=== PATIENT | female | born 1985 | race Caucasian/White ===

== ENCOUNTER 2022-07-22 19:22 | Inpatient (IN) | payer OTHER, SELFPAY ==
[2022-07-22] VITALS (13 sets, daily range): BP systolic 112–145; BP diastolic 70–92; PULSE 113–127; RESP 18–26; TEMP 36.9–37; O2SAT 97–98; BMI 36.6
--- NOTE | 2022-07-22 20:16 | DI.RAD.S_ITS ---
PROCEDURE: XR CHEST 1V INDICATIONS: chest pain TECHNIQUE: One view of the chest was acquired. COMPARISON: None. FINDINGS: Surgical changes and devices: None. Lungs and pleura: There are low lung volumes. Confluent airspace opacities are demonstrated within the left lung base consistent with consolidation. No pleural effusions or pneumothorax. Mediastinum: Mediastinal contours appear normal. Heart size is normal. Bones and chest wall: No suspicious bony lesions. Overlying soft tissues appear unremarkable. IMPRESSION: 1. Left basilar consolidation likely due to pneumonia. Dictated by: Keaton Sy M.D. on 07/22/2022 at 21:07 Approved by: Keaton Sy M.D. on 07/22/2022 at 21:08
[2022-07-22] MEDS: KETOROLAC 30 MG/ML VIAL 15 MG IV (20:23)
[2022-07-22] MEDS: SODIUM CHLORIDE 0.9% 1,000 ML 1000 ML IV ×2 (20:24→23:25)
[2022-07-22 20:26] LABS: D Dimer 818 ng/ml (<500)
--- NOTE | 2022-07-22 20:28 | ED.URI ---
HPI - URI/Sore Throat General Chief Complaint: Upper Respiratory Symptoms Stated Complaint: chest pain, cough, shortness of lucio, fev, chills Time Seen by Provider: 07/22/22 19:42 Source: patient Mode of arrival: Ambulatory History of Present Illness HPI Narrative: Patient is a 37-year-old female without past medical history presenting today with left-sided chest pain and upper respiratory like infections. She reports that she went to [facility] on July 11. For the last 5 days she has been coughing she is been taking Tylenol and ibuprofen around the clock. She is left-sided pain almost pinpoint able. Unable to lay down at night because of pain. She sometimes feels short of breath. She tried taking some cough syrup last night it helped a little bit. However the pain is pretty unbearable. She is not coughing anything up. No abdominal pain no swelling in her ankles. Denies any orthopnea. Related Data Home Medications Medication Instructions Recorded Confirmed No Known Home Medications 07/22/22 07/22/22 Allergies Allergy/AdvReac Type Severity Reaction Status Date / Time ciprofloxacin [From Cipro] Allergy Verified 07/22/22 19:36 Sulfa (Sulfonamide Allergy Verified 07/22/22 19:36 Antibiotics) Review of Systems Review of Systems ROS Unobtainable: All systems reviewed & are unremarkable except as noted in HPI and below Patient History Social History household members: spouse and children Smoking Status: Never smoker Smoking Status: Never smoker alcohol intake frequency: holidays/special occasions only Substance Use Type: does not use Exam Initial Vital Signs Initial Vital Signs: Vital Signs Temperature 98.6 F 07/22/22 19:31 Pulse Rate 125 H 07/22/22 19:31 Respiratory Rate 18 07/22/22 19:31 Blood Pressure 131/86 07/22/22 19:31 Pulse Oximetry 98 07/22/22 19:31 Oxygen Delivery Method 07/22/22 19:31 GENERAL: Alert 37-year-old female appears to not feel well HEENT: Head atraumatic,EOMI, pupils reactive, face symmetric, moist mucous membranes CARDIOVASCULAR: Tachy regular no murmurs RESPIRATORY: Breath sounds equal bilaterally, no wheezes rales or rhonchi. ABDOMEN: Soft, nontender. Normoactive bowel sounds all 4 quadrants. No guarding or rebound. : No CVA tenderness EXTREMITIES: Normal range of motion, no clubbing or edema. Neurovascularly intact NEUROLOGICAL: Alert and oriented x4.Normal gait and speech. SKIN: Warm, dry, no laceration, no petechiae, no rashes or lesions. Scores CURB-65 Confusion: No BUN >19mg/dL (>7mmol/L): No Respiratory rate greater or equal to 30: No SBP <90mmHg or DBP less or equal to 60mmHg: No Age 65 or Older: No CURB-65 Total: 0 Score 0-1 Outpatient care, Score 2 Inpt vs. Obs, Score 3 or over Inpt admit with ICU for score of 4-5 Course Orders Ordered: ED Orders 07/22/22 19:40 Covid-19 + FLU A/B + RSV - PCR Stat 07/22/22 20:00 Lactate (Lactic Acid) Stat 07/22/22 20:10 Complete Blood Count AUTO DIFF Stat Comprehensive Metabolic Panel Stat D Dimer Stat Lipase Stat NT-proBNP (BNP-Adult 18+) Stat Procalcitonin Stat Troponin & CK Cardiac Panel Stat 07/22/22 20:16 XR chest 1V Stat EKG-12 Lead Stat 07/22/22 20:43 CT angio chest PE protocol Stat 07/22/22 20:51 Ictotest Urine Stat Urine Microscopic Stat 07/22/22 21:05 Blood Culture Stat Acetaminophen (Acetaminophen 325 Mg Tablet) 650 mg PO Q6H PRN PRN Reason: Fever/Mild Pain (1-3) Enoxaparin Sodium (Enoxaparin 40 Mg/0.4 Ml Syringe) 40 mg SUBCUT DAILY [facility] Guaifenesin (Guaifenesin Er 600 Mg Tab) 1,200 mg PO BID [facility] Last Admin: 07/23/22 00:53 Dose: 1,200 mg Documented By: Guaifenesin/Codeine Phosphate (Codeine/Guaifenesin Liquid 5ml Udc) 10 ml PO Q6H PRN PRN Reason: Cough Ceftriaxone Sodium 1,000 mg/ (Sodium Chloride) 100 mls @ 200 mls/hr IV Q24H [facility] Azithromycin 500 mg/ Dextrose 250 mls @ 250 mls/hr IV Q24H [facility] Ketorolac Tromethamine (Ketorolac 30 Mg/Ml Vial) 15 mg IV Q6H PRN PRN Reason: pain Stop: 07/27/22 22:22 Morphine Sulfate (Morphine 2 Mg/Ml Inj) 2 mg IV Q4HR PRN PRN Reason: Pain, Moderate (4-6) Last Admin: 07/23/22 01:04 Dose: 2 mg Documented By: Naloxone HCl (Naloxone 0.4 Mg/Ml Vial) 0.2 mg IV Q2MIN PRN PRN Reason: Opiate Reversal Ondansetron HCl (Ondansetron 4 Mg/2 Ml Inj) 4 mg IV Q8HR PRN PRN Reason: Nausea And Vomiting Discontinued Medications Acetaminophen (Acetaminophen 325 Mg Tablet) 975 mg PO NOW ONE Stop: 07/22/22 21:23 Last Admin: 07/22/22 21:28 Dose: 975 mg Documented By: INDIRA Sodium Chloride (Normal Saline 0.9%) 1,000 mls @ 1,000 mls/hr IV CONT VANDANA Last Infusion: 07/22/22 22:14 Dose: 0 mls/hr Documented By: Admin: 07/22/22 20:24 Dose: 1,000 mls/hr Documented By: INDIRA Ceftriaxone Sodium 2,000 mg/ (Sodium Chloride) 100 mls @ 200 mls/hr IV NOW ONE Stop: 07/22/22 20:57 Last Infusion: 07/22/22 22:14 Dose: 0 mls/hr Documented By: Admin: 07/22/22 21:33 Dose: 200 mls/hr Documented By: INDIRA Azithromycin 500 mg/ Dextrose 250 mls @ 250 mls/hr IV NOW ONE Stop: 07/22/22 20:57 Last Infusion: 07/22/22 22:50 Dose: 250 mls/hr Documented By: Admin: 07/22/22 22:26 Dose: 250 mls/hr Documented By: INDIRA Sodium Chloride (Normal Saline 0.9%) 1,000 mls @ 1,000 mls/hr IV BOLUS ONE Stop: 07/23/22 00:06 Last Admin: 07/22/22 23:25 Dose: 1,000 mls/hr Documented By: Ketorolac Tromethamine (Ketorolac 30 Mg/Ml Vial) 15 mg IV NOW ONE Stop: 07/22/22 20:17 Last Admin: 07/22/22 20:23 Dose: 15 mg Documented By: INDIRA Morphine Sulfate (Morphine 4 Mg/Ml Inj) 4 mg IV NOW ONE Stop: 07/22/22 22:05 Last Admin: 07/22/22 22:26 Dose: 4 mg Documented By: INDIRA Vital Signs Vital signs: Vital Signs - 8 hr 07/22/22 19:31 07/22/22 19:58 07/22/22 19:58 Temperature 98.6 F Pulse Rate 125 H 127 H Respiratory Rate 18 Blood Pressure 131/86 129/74 Pulse Oximetry 98 97 Oxygen Delivery Method Room Air Room Air 07/22/22 20:00 07/22/22 20:30 07/22/22 20:30 Temperature Pulse Rate 127 H 122 H Respiratory Rate 23 24 Blood Pressure 113/92 H Pulse Oximetry 97 97 Oxygen Delivery Method Room Air Room Air 07/22/22 20:54 07/22/22 20:54 07/22/22 21:00 Temperature Pulse Rate 124 H 113 H Respiratory Rate 24 25 H Blood Pressure 145/83 H Pulse Oximetry 98 98 Oxygen Delivery Method Room Air Room Air 07/22/22 21:01 07/22/22 21:01 07/22/22 21:30 Temperature Pulse Rate 113 H 115 H Respiratory Rate 24 24 Blood Pressure 115/70 Pulse Oximetry 98 97 Oxygen Delivery Method Room Air Room Air MDM - URI/Sore Throat Lab Data 07/22/22 20:10 07/22/22 20:10 Labs: Lab Results 07/22/22 07/22/22 07/22/22 Range/Units 19:40 20:00 20:10 WBC 35.8 H* (4.5-11.0) X10^3/uL RBC 4.68 (4.0-5.2) X10^6/uL Hgb 12.1 (12.0-16.0) g/dL Hct 36.8 (36-46) % MCV 78.6 L (80-100) fL MCH 25.8 L (26-34) PG MCHC 32.8 (30-36) % RDW 15.2 H (11.6-14.8) % Plt Count 352 (150-400) X10^3/uL Neut % (Auto) Not Reportable Lymph % (Auto) Not Reportable [place] % (Auto) Not Reportable Eos % (Auto) Not Reportable Baso % (Auto) Not Reportable Lymph # (Auto) Not Reportable [place] # (Auto) Not Reportable Baso # (Auto) Not Reportable Total Counted 100 Seg Neutrophils % 58.0 (38-70) % Band Neutrophils % 25.0 H (3-7) % Lymphocytes % (Manual) 10.0 L (25-45) % Monocytes % (Manual) 7.0 (2-11) % Neutrophils # (Manual) 96771 H (4647-0733) /uL Platelet Estimate Adequate on smear RBC Morphology Normal morphology D-Dimer (<500) ng/ml Sodium (137-145) mmol/L Potassium (3.4-5.1) mmol/L Chloride (98-107) mmol/L Carbon Dioxide (22-32) mmol/L BUN (7-17) mg/dL Creatinine (0.52-1.04) mg/dL Estimated GFR (>60) mL/min BUN/Creatinine Ratio (6-22) Glucose (70-100) mg/dL Lactate 1.2 (0.7-2.1) mmol/L Calcium (8.4-10.2) mg/dL Total Bilirubin (0.2-1.3) mg/dL AST (14-36) IU/L ALT (<35) IU/L Alkaline Phosphatase (38-126) U/L Total Creatine Kinase (30-135) U/L CK-MB (CK-2) CK-MB (CK-2) Rel Index Troponin I (0.01-0.034) ng/mL NT-Pro-B Natriuret Pep (<125) pg/mL Total Protein (6.3-8.2) g/dL Albumin (3.5-5.0) g/dL Globulin (1.7-4.1) g/dL Albumin/Globulin Ratio (1.0-2.8) Lipase (23-300) U/L Procalcitonin (<0.5) ng/mL Ur Bilirubin Confirm (Negative) Urine RBC (0-5/HPF) Urine WBC (0-5/HPF) Urine Bacteria (None) Ur Culture Indicated? SARS-CoV-2 (PCR) Positive H (Negative) Influenza A (RT-PCR) Flu a negative (NEGATIVE) Influenza B (RT-PCR) Flu b negative (NEGATIVE) RSV (PCR) Negative (Negative) 07/22/22 07/22/2223 Range/Units 20:10 20:10 20:51 WBC (4.5-11.0) X10^3/uL RBC (4.0-5.2) X10^6/uL Hgb (12.0-16.0) g/dL Hct (36-46) % MCV (80-100) fL MCH (26-34) PG MCHC (30-36) % RDW (11.6-14.8) % Plt Count (150-400) X10^3/uL Neut % (Auto) Lymph % (Auto) [place] % (Auto) Eos % (Auto) Baso % (Auto) Lymph # (Auto) [place] # (Auto) Baso # (Auto) Total Counted Seg Neutrophils % (38-70) % Band Neutrophils % (3-7) % Lymphocytes % (Manual) (25-45) % Monocytes % (Manual) (2-11) % Neutrophils # (Manual) (5403-8710) /uL Platelet Estimate RBC Morphology D-Dimer 818 H (<500) ng/ml Sodium 141 (137-145) mmol/L Potassium 3.6 (3.4-5.1) mmol/L Chloride 102 (98-107) mmol/L Carbon Dioxide 23 (22-32) mmol/L BUN 10 (7-17) mg/dL Creatinine 0.56 (0.52-1.04) mg/dL Estimated GFR > 60 (>60) mL/min BUN/Creatinine Ratio 17.9 (6-22) Glucose 141 H (70-100) mg/dL Lactate (0.7-2.1) mmol/L Calcium 9.3 (8.4-10.2) mg/dL Total Bilirubin 1.0 (0.2-1.3) mg/dL AST 29 (14-36) IU/L ALT 65 H (<35) IU/L Alkaline Phosphatase 239 H (38-126) U/L Total Creatine Kinase 33 (30-135) U/L CK-MB (CK-2) TNP CK-MB (CK-2) Rel Index TNP Troponin I < 0.012 (0.01-0.034) ng/mL NT-Pro-B Natriuret Pep 237 H (<125) pg/mL Total Protein 8.5 H (6.3-8.2) g/dL Albumin 4.0 (3.5-5.0) g/dL Globulin 4.5 H (1.7-4.1) g/dL Albumin/Globulin Ratio 0.9 L (1.0-2.8) Lipase 58 (23-300) U/L Procalcitonin 1.04 H (<0.5) ng/mL Ur Bilirubin Confirm Negative (Negative) Urine RBC 1-5/hpf (0-5/HPF) Urine WBC None seen (0-5/HPF) Urine Bacteria Occasional (0-1) (None) Ur Culture Indicated? Cult not indicated SARS-CoV-2 (PCR) (Negative) Influenza A (RT-PCR) (NEGATIVE) Influenza B (RT-PCR) (NEGATIVE) RSV (PCR) (Negative) Point of Care Testing Test Results Negative Urine Dip Bedside Urine Glucose Negative Bedside Urine Bilirubin - Negative Bedside Urine Ketone - Negative Urine Specific [place] 1.010 Bedside Urine Occult Blood +++ Bedside Urine pH 6.0 Bedside Urine Protein + 30 Bedside Urine Urobilinogen +/- 1mg Bedside Urine Nitrite - Negative Bedside Urine Leukocytes - Negative Esterase Imaging Data Chest x-ray: Radiologist's Impression: PROCEDURE:? XR CHEST 1V ? INDICATIONS:? chest pain ? TECHNIQUE:? One view of the chest was acquired.? ? COMPARISON:? None. ? FINDINGS:? ? Surgical changes and devices:? None.? ? Lungs and pleura:? There are low lung volumes.? Confluent airspace opacities are demonstrated within the left lung base consistent with consolidation.? No pleural effusions or pneumothorax.? ? Mediastinum:? Mediastinal contours appear normal.? Heart size is normal.? ? Bones and chest wall:? No suspicious bony lesions.? Overlying soft tissues appear unremarkable.? ? IMPRESSION:? ? 1. Left basilar consolidation likely due to pneumonia. ? ? Dictated by: Keaton Sy M.D. on 07/22/2022 at 21:07 ? ? CT scan - chest: Radiologist's Impression: PROCEDURE:? CT ANGIO CHEST PE PROTOCOL ? INDICATIONS:? sob high dime ? TECHNIQUE:? After the administration of intravenous contrast, 2 mm thick sections acquired from the pulmonary apices to the posterior costophrenic angles.? 3-dimensional maximum intensity projection (MIP) coronal and sagittal reformats were then acquired through the thorax.? For radiation dose reduction, the following was used:? automated exposure control, adjustment of mA and/or kV according to patient size.? ? COMPARISON:? [facility], CR, XR CHEST 1V, 07/22/2022, 20:25. ? FINDINGS:? Image quality:? Excellent.? ? Pulmonary arteries:? There is suboptimal opacification of the pulmonary arteries limiting evaluation of subsegmental branches.? Pulmonary arteries demonstrate no intraluminal filling defects to suggest central pulmonary embolism.? ? Lower Neck: No lymphadenopathy by size criteria. Thyroid:? Visualized thyroid demonstrates no discrete nodules. Axillae: No lymphadenopathy by size criteria. Chest Wall:? Unremarkable.? Bones: Visualized osseous structures demonstrate no suspicious lesions. ? Lungs and Airways:? There is confluent airspace consolidation within the left lingula.? Mild linear opacities within the lower lobes, left greater than right, are suggestive of atelectasis.? The trachea and central airways are patent. Pleura: No pneumothorax or pleural effusions.? ? Heart: Heart size is normal.? No pericardial effusion. Thoracic Vessels: The thoracic aorta is normal in size.? Mediastinum and Orin: No lymphadenopathy by size criteria. Esophagus: No wall thickening. No hiatal hernia. ? Abdomen:? Visualized upper abdominal solid organs appear normal in the early arterial phase of enhancement.? ? IMPRESSION:? ? 1. No evidence of central pulmonary embolism.? Evaluation of subsegmental pulmonary arteries limited by suboptimal contrast opacification. ? 2. Confluent consolidation within the left lingula compatible with lobar pneumonia. ? ? Dictated by: Keaton Sy M.D. on 07/22/2022 at 22:06 ? ? Approved by: Keaton Sy M.D. on 07/22/2022 at 22:09 ? ECG Data Interpretation: Sinus rhythm rate 120 IA interval 126 QRS [address] changes MDM Narrative Medical decision making narrative: Patient is a healthy 37-year-old female presenting with upper respiratory like symptoms ongoing for 5 days. She has significant left-sided chest pain as well. Pain seems to be palpable and reproducible with breathing. She is persistently tachycardic despite pain medication and IV fluids. Her x-ray does show left-sided pneumonia. She is not hypoxic. She is found have significant leukocytosis of 35,000. Her D-dimer is elevated at 818. Due to her recent travel persistent tachycardia and significant leukocytosis CT chest is ordered which does confirm pneumonia and does not show any pulmonary embolism. She is also found to have COVID. She appears quite uncomfortable on exam. She is given morphine and fluids but again is persistently tachycardic with a heart rate greater than 110. Her lactate is surprisingly within normal limits and her electrolytes and kidney function also do not show any abnormality. She is given Rocephin and azithromycin for community-acquired pneumonia. She is not hypoxic requiring treatment for her COVID. Due to significantly elevated leukocytosis and persistent tachycardia discussion with hospitalist to admit. Dr. Mccormick kindly accepts patient for admission Discharge Plan Departure Patient Disposition: Admitted As Inpatient Clinical Impression: Pneumonia, COVID-19 Admit Date/Time: 07/22/22 21:55 Admit Provider: Yovani Arnold
[2022-07-22 20:30] LABS: Alanine Aminotransferase 65 IU/L (<35); Albumin Globulin Ratio 0.9 (1.0-2.8); Alkaline Phosphatase 239 U/L (38-126); Aspartate Aminotransferase 29 IU/L (14-36); BUN Creatinine Ratio 17.9 (6-22); Blood Urea Nitrogen 10 mg/dL (7-17); Calcium 9.3 mg/dL (8.4-10.2); Carbon Dioxide 23 mmol/L (22-32); Chloride 102 mmol/L (98-107); Creatine Kinase 33 U/L (30-135); Estimated Glomerular Filt Rate > 60 mL/min (>60); Globulin 4.5 g/dL (1.7-4.1); Glucose 141 mg/dL (70-100); HEMOLYSIS < 15 (0-50); Lipase 58 U/L (23-300); Potassium 3.6 mmol/L (3.4-5.1); Sodium 141 mmol/L (137-145); Total Protein 8.5 g/dL (6.3-8.2)
[2022-07-22 20:36] LABS: Hematocrit 36.8 % (36-46); Hemoglobin 12.1 g/dL (12.0-16.0); Mean Corpuscular HGB Conc 32.8 % (30-36); Mean Corpuscular Hemoglobin 25.8 PG (26-34); Mean Corpuscular Volume 78.6 fL (80-100); Platelet Count 352 X10^3/uL (150-400); Red Blood Cell Count 4.68 X10^6/uL (4.0-5.2); Red Cell Distribution Width 15.2 % (11.6-14.8)
[2022-07-22 20:41] LABS: Influenza A - CEPHEID Flu A NEGATIVE (NEGATIVE); Influenza B - CEPHEID Flu B NEGATIVE (NEGATIVE); Respiratory Syncytial Virus Negative (Negative)
[2022-07-22 20:42] LABS: NT-proBNP (BNP-Adult 18+) 237 pg/mL (<125); Troponin I < 0.012 ng/mL (0.01-0.034)
--- NOTE | 2022-07-22 20:43 | DI.CT.S_ITS ---
PROCEDURE: CT ANGIO CHEST PE PROTOCOL INDICATIONS: sob high dime TECHNIQUE: After the administration of intravenous contrast, 2 mm thick sections acquired from the pulmonary apices to the posterior costophrenic angles. 3-dimensional maximum intensity projection (MIP) coronal and sagittal reformats were then acquired through the thorax. For radiation dose reduction, the following was used: automated exposure control, adjustment of mA and/or kV according to patient size. COMPARISON: [facility], CR, XR CHEST 1V, 07/22/2022, 20:25. FINDINGS: Image quality: Excellent. Pulmonary arteries: There is suboptimal opacification of the pulmonary arteries limiting evaluation of subsegmental branches. Pulmonary arteries demonstrate no intraluminal filling defects to suggest central pulmonary embolism. Lower Neck: No lymphadenopathy by size criteria. Thyroid: Visualized thyroid demonstrates no discrete nodules. Axillae: No lymphadenopathy by size criteria. Chest Wall: Unremarkable. Bones: Visualized osseous structures demonstrate no suspicious lesions. Lungs and Airways: There is confluent airspace consolidation within the left lingula. Mild linear opacities within the lower lobes, left greater than right, are suggestive of atelectasis. The trachea and central airways are patent. Pleura: No pneumothorax or pleural effusions. Heart: Heart size is normal. No pericardial effusion. Thoracic Vessels: The thoracic aorta is normal in size. Mediastinum and Orin: No lymphadenopathy by size criteria. Esophagus: No wall thickening. No hiatal hernia. Abdomen: Visualized upper abdominal solid organs appear normal in the early arterial phase of enhancement. IMPRESSION: 1. No evidence of central pulmonary embolism. Evaluation of subsegmental pulmonary arteries limited by suboptimal contrast opacification. 2. Confluent consolidation within the left lingula compatible with lobar pneumonia. Dictated by: Keaton Sy M.D. on 07/22/2022 at 22:06 Approved by: Keaton Sy M.D. on 07/22/2022 at 22:09
[2022-07-22 20:44] LABS: Add Manual Diff / Slide Review YES
[2022-07-22 20:45] LABS: White Blood Cell Count 35.8 X10^3/uL (4.5-11.0)
[2022-07-22 20:46] LABS: Procalcitonin 1.04 ng/mL (<0.5)
[2022-07-22 20:59] LABS: Neutrophils Absolute Manual 29714 /uL (3000-5900); Total Cells Counted 100
[2022-07-22 21:00] LABS: Platelet Estimate Adequate on smear; RBC Morphology Normal Morphology
[2022-07-22 21:11] LABS: Lactate (Lactic Acid) 1.2 mmol/L (0.7-2.1)
[2022-07-22 21:16] LABS: COVID-19 CEPHEID 4-PLEX PCR POSITIVE (Negative)
[2022-07-22 21:23] LABS: Bacteria Urine Occasional (0-1); RBC Urine 1-5/HPF (0-5/HPF); WBC Urine None Seen (0-5/HPF)
[2022-07-22 21:24] LABS: Culture Indicated Urine Cult Not Indicated
[2022-07-22 21:27] LABS: Ictotest Urine Negative (Negative)
[2022-07-22] MEDS: ACETAMINOPHEN 325 MG TABLET 975 MG PO (21:28)
[2022-07-22] MEDS: cefTRIAXone 2,000 MG in SODIUM CHLORIDE 0.9% 100 ML 200 MG IV (21:33)
[2022-07-22] MEDS: AZITHROMYCIN 500 MG in DEXTROSE 5% IN WATER 250 ML 250 MG IV (22:26)
[2022-07-22] MEDS: MORPHINE 4 MG/ML INJ IV (22:26)
--- NOTE | 2022-07-22 23:21 | PM.HP.1 ---
History of Present Illness History of Present Illness Date Patient Seen: 07/22/22 Time Patient Seen: 23:30 Chief complaint: chest pain, cough, shortness of lucio, fev, chills Narrative: Ms. Naranjo is a 37W with no significant cardiac or pulmonary medical history who presents with shortness of breath and cough. She was recently in [place] and returned a week and a half ago. She has noted since she has developed a worsening cough and shortness of breath. She notes developing left sided chest pain that hurts worth with breaths. She has no sick contacts. No smoking or vaping history. No aspiration. She had been taking tylenol and ibuprofen consistently for pain. She has noted fevers. Her cough is nonproductive. In the ED workup was done, vitals notable for being afebrile, heart rate in the 120s, sats 98% on room air. Labs notable for WBC 35.8, hgb 12.1, 25% bands. Lactate 1.2. COVID positive. d-dimer 818. Creatinine 0.56. Procal 1.04. Chest xray with left basilar consolidation. CTA chest with left lingular consolidation. She was ordered for antibiotics and admitted for further treatment. Patient History Family & Social History Tobacco & Substance use: Smoking Status Never smoker alcohol intake frequency holiday/special occasion Substance Use Type does not use Meds Home Medications and Allergies Home Medications Medication Instructions Recorded Confirmed Type No Known Home Medications 07/22/22 07/22/22 History Allergies Allergy/AdvReac Type Severity Reaction Status Date / Time ciprofloxacin [From Cipro] Allergy Verified 07/22/22 19:36 Sulfa (Sulfonamide Allergy Verified 07/22/22 19:36 Antibiotics) Review of Systems Review of Systems Narrative: 14 systems reviewed and negative aside from what is noted in HPI Exam Vital Signs (past 8 hours): - 07/22/22 19:31 07/22/22 19:58 07/22/22 19:58 Temperature 98.6 F Pulse Rate 125 H 127 H Respiratory Rate 18 Blood Pressure 131/86 129/74 Pulse Oximetry 98 97 Oxygen Delivery Method Room Air Room Air 07/22/22 20:00 07/22/22 20:30 07/22/22 20:30 Temperature Pulse Rate 127 H 122 H Respiratory Rate 23 24 Blood Pressure 113/92 H Pulse Oximetry 97 97 Oxygen Delivery Method Room Air Room Air 07/22/22 20:54 07/22/22 20:54 07/22/22 21:00 Temperature Pulse Rate 124 H 113 H Respiratory Rate 24 25 H Blood Pressure 145/83 H Pulse Oximetry 98 98 Oxygen Delivery Method Room Air Room Air 07/22/22 21:01 07/22/22 21:01 Temperature Pulse Rate 113 H Respiratory Rate 24 Blood Pressure 115/70 Pulse Oximetry 98 Oxygen Delivery Method Room Air Oxygen Delivery Method Room Air Narrative Exam Narrative: GEN: ill appearing, uncomfortable appearing HEENT: moist mucous membranes, PERRL NECK: trachea midline, no jvd PULM: left sided base decreased breath sounds CV: tachycardic no murmurs ABD: soft, nontender EXT: warm and well perfused, no edema NEURO: awake, alert, oriented, no focal deficits noted Objective Labs 07/22/22 20:10 07/22/22 20:10 Labs: Laboratory Results - last 24 hr 07/22/22 07/22/22 07/22/22 19:40 20:00 20:10 WBC 35.8 H* RBC 4.68 Hgb 12.1 Hct 36.8 MCV 78.6 L MCH 25.8 L MCHC 32.8 RDW 15.2 H Plt Count 352 Neut % (Auto) Not Reportable Lymph % (Auto) Not Reportable [place] % (Auto) Not Reportable Eos % (Auto) Not Reportable Baso % (Auto) Not Reportable Lymph # (Auto) Not Reportable [place] # (Auto) Not Reportable Baso # (Auto) Not Reportable Total Counted 100 Seg Neutrophils % 58.0 Band Neutrophils % 25.0 H Lymphocytes % (Manual) 10.0 L Monocytes % (Manual) 7.0 Neutrophils # (Manual) 61839 H Platelet Estimate Adequate on smear RBC Morphology Normal morphology D-Dimer Sodium Potassium Chloride Carbon Dioxide BUN Creatinine Estimated GFR BUN/Creatinine Ratio Glucose Lactate 1.2 Calcium Total Bilirubin AST ALT Alkaline Phosphatase Total Creatine Kinase CK-MB (CK-2) CK-MB (CK-2) Rel Index Troponin I NT-Pro-B Natriuret Pep Total Protein Albumin Globulin Albumin/Globulin Ratio Lipase Procalcitonin Ur Bilirubin Confirm Urine RBC Urine WBC Urine Bacteria Ur Culture Indicated? SARS-CoV-2 (PCR) Positive H Influenza A (RT-PCR) Flu a negative Influenza B (RT-PCR) Flu b negative RSV (PCR) Negative 07/22/22 07/22/22 07/22/22 20:10 20:10 20:51 WBC RBC Hgb Hct MCV MCH MCHC RDW Plt Count Neut % (Auto) Lymph % (Auto) [place] % (Auto) Eos % (Auto) Baso % (Auto) Lymph # (Auto) [place] # (Auto) Baso # (Auto) Total Counted Seg Neutrophils % Band Neutrophils % Lymphocytes % (Manual) Monocytes % (Manual) Neutrophils # (Manual) Platelet Estimate RBC Morphology D-Dimer 818 H Sodium 141 Potassium 3.6 Chloride 102 Carbon Dioxide 23 BUN 10 Creatinine 0.56 Estimated GFR > 60 BUN/Creatinine Ratio 17.9 Glucose 141 H Lactate Calcium 9.3 Total Bilirubin 1.0 AST 29 ALT 65 H Alkaline Phosphatase 239 H Total Creatine Kinase 33 CK-MB (CK-2) TNP CK-MB (CK-2) Rel Index TNP Troponin I < 0.012 NT-Pro-B Natriuret Pep 237 H Total Protein 8.5 H Albumin 4.0 Globulin 4.5 H Albumin/Globulin Ratio 0.9 L Lipase 58 Procalcitonin 1.04 H Ur Bilirubin Confirm Negative Urine RBC 1-5/hpf Urine WBC None seen Urine Bacteria Occasional (0-1) Ur Culture Indicated? Cult not indicated SARS-CoV-2 (PCR) Influenza A (RT-PCR) Influenza B (RT-PCR) RSV (PCR) Assessment & Plan Assessment & Plan narrative: 1. Pneumonia -imaging consistent with left sided lingular basilar pneumonia -labs table for leukocytosis and significant bandemia, with tachycardia -did get IV fluids and started on ceftriaxone and azithromycin -continue antibiotics, with ceftriaxone and azithromycin -continue with pain medications, and cough medications -if not improving will broaden treatment 2. COVID positive -covid noted to be positive -not requiring any oxygen -for now no indication for remdesivir or steroids I have discussed the plan of care with the patient. I have discussed the patient's care plan with the ED physician and bedside nurse. I have personally reviewed labs and chest xray. CODE: Full Proxy: Delmi Naranjo spouse Time Spent With Patient Critical Care time: I spent a total of [] minutes of critical care time on this patient's care today; this time is exclusive of procedural time. Quality MIPS - Meds 'Current medications' to include all prescriptions, [id number] products, herbals, cannabis/cannabidiol products, and vitamin/mineral/dietary (nutritional) supplements. I have utilized all available resources to obtain, update, or review the patient?s current medications. [If Yes, STOP here]: Yes
[2022-07-23] VITALS (9 sets, daily range): BP systolic 103–138; BP diastolic 67–87; PULSE 98–121; RESP 18–21; TEMP 36.5–37.4; O2SAT 97–100
[2022-07-23] MEDS: guaiFENesin ER 600 MG TAB 1200 MG PO ×2 (00:53→08:58)
[2022-07-23] MEDS: MORPHINE 2 MG/ML INJ IV (01:04)
[2022-07-23] MEDS: CODEINE/GUAIFENESIN LIQUID 5ML UDC 10 ML PO ×2 (02:42→13:58)
[2022-07-23] MEDS: KETOROLAC 30 MG/ML VIAL 15 MG IV ×3 (04:35→16:48)
[2022-07-23] MEDS: ACETAMINOPHEN 325 MG TABLET 650 MG PO ×4 (04:36→22:28)
[2022-07-23 05:34] LABS: Hematocrit 32.4 % (36-46); Hemoglobin 10.5 g/dL (12.0-16.0); Mean Corpuscular HGB Conc 32.3 % (30-36); Mean Corpuscular Hemoglobin 25.5 PG (26-34); Mean Corpuscular Volume 78.8 fL (80-100); Platelet Count 337 X10^3/uL (150-400); Red Blood Cell Count 4.12 X10^6/uL (4.0-5.2); Red Cell Distribution Width 15.1 % (11.6-14.8)
[2022-07-23 05:37] LABS: Add Manual Diff / Slide Review YES; White Blood Cell Count 37.2 X10^3/uL (4.5-11.0)
[2022-07-23 05:38] LABS: BUN Creatinine Ratio 10.6 (6-22); Blood Urea Nitrogen 5 mg/dL (7-17); Calcium 8.4 mg/dL (8.4-10.2); Carbon Dioxide 23 mmol/L (22-32); Chloride 105 mmol/L (98-107); Estimated Glomerular Filt Rate > 60 mL/min (>60); Glucose 90 mg/dL (70-100); HEMOLYSIS < 15 (0-50); Potassium 3.8 mmol/L (3.4-5.1); Sodium 137 mmol/L (137-145)
[2022-07-23 06:30] LABS: Neutrophils Absolute Manual 30876 /uL (3000-5900); Total Cells Counted 100
[2022-07-23 06:32] LABS: Anisocytosis 1+
--- NOTE | 2022-07-23 07:41 | P.PN_ITS ---
Subjective Subjective Date Patient Seen: 07/23/22 Interval history: Cough and SOB have improved today. Overall feeling better. WBC still at 37. Exam Vital Signs (past 8 hours): - 07/23/22 04:49 07/23/22 03:00 Temperature 99.3 F Pulse Rate 121 H Respiratory Rate 21 Blood Pressure 118/67 Pulse Oximetry 98 98 Oxygen Delivery Method Room Air Oxygen Flow Rate 0 Oxygen Delivery Method Room Air Oxygen Flow Rate 0 Narrative Exam Narrative: GEN: ill appearing, awake and alert HEENT: moist mucous membranes, PERRL NECK: trachea midline, no jvd PULM: left sided base decreased breath sounds CV: tachycardic no murmurs ABD: soft, nontender EXT: warm and well perfused, no edema NEURO: awake, alert, oriented, no focal deficits noted Objective Labs 07/23/22 04:56 07/23/22 04:56 Labs: Laboratory Results - last 24 hr 07/22/22 07/22/22 07/22/22 19:40 20:00 20:10 WBC 35.8 H* RBC 4.68 Hgb 12.1 Hct 36.8 MCV 78.6 L MCH 25.8 L MCHC 32.8 RDW 15.2 H Plt Count 352 Neut % (Auto) Not Reportable Lymph % (Auto) Not Reportable Ray % (Auto) Not Reportable Eos % (Auto) Not Reportable Baso % (Auto) Not Reportable Lymph # (Auto) Not Reportable Ray # (Auto) Not Reportable Baso # (Auto) Not Reportable Total Counted 100 Seg Neutrophils % 58.0 Band Neutrophils % 25.0 H Lymphocytes % (Manual) 10.0 L Monocytes % (Manual) 7.0 Eosinophils % (Manual) Neutrophils # (Manual) 82762 H Platelet Estimate Adequate on smear RBC Morphology Normal morphology Anisocytosis D-Dimer Sodium Potassium Chloride Carbon Dioxide BUN Creatinine Estimated GFR BUN/Creatinine Ratio Glucose Lactate 1.2 Calcium Total Bilirubin AST ALT Alkaline Phosphatase Total Creatine Kinase CK-MB (CK-2) CK-MB (CK-2) Rel Index Troponin I NT-Pro-B Natriuret Pep Total Protein Albumin Globulin Albumin/Globulin Ratio Lipase Procalcitonin Ur Bilirubin Confirm Urine RBC Urine WBC Urine Bacteria Ur Culture Indicated? SARS-CoV-2 (PCR) Positive H Influenza A (RT-PCR) Flu a negative Influenza B (RT-PCR) Flu b negative RSV (PCR) Negative 07/22/22 07/22/22 07/22/22 20:10 20:10 20:51 WBC RBC Hgb Hct MCV MCH MCHC RDW Plt Count Neut % (Auto) Lymph % (Auto) Ray % (Auto) Eos % (Auto) Baso % (Auto) Lymph # (Auto) Ray # (Auto) Baso # (Auto) Total Counted Seg Neutrophils % Band Neutrophils % Lymphocytes % (Manual) Monocytes % (Manual) Eosinophils % (Manual) Neutrophils # (Manual) Platelet Estimate RBC Morphology Anisocytosis D-Dimer 818 H Sodium 141 Potassium 3.6 Chloride 102 Carbon Dioxide 23 BUN 10 Creatinine 0.56 Estimated GFR > 60 BUN/Creatinine Ratio 17.9 Glucose 141 H Lactate Calcium 9.3 Total Bilirubin 1.0 AST 29 ALT 65 H Alkaline Phosphatase 239 H Total Creatine Kinase 33 CK-MB (CK-2) TNP CK-MB (CK-2) Rel Index TNP Troponin I < 0.012 NT-Pro-B Natriuret Pep 237 H Total Protein 8.5 H Albumin 4.0 Globulin 4.5 H Albumin/Globulin Ratio 0.9 L Lipase 58 Procalcitonin 1.04 H Ur Bilirubin Confirm Negative Urine RBC 1-5/hpf Urine WBC None seen Urine Bacteria Occasional (0-1) Ur Culture Indicated? Cult not indicated SARS-CoV-2 (PCR) Influenza A (RT-PCR) Influenza B (RT-PCR) RSV (PCR) 07/23/22 07/23/22 04:56 04:56 WBC 37.2 H* RBC 4.12 Hgb 10.5 L Hct 32.4 L MCV 78.8 L MCH 25.5 L MCHC 32.3 RDW 15.1 H Plt Count 337 Neut % (Auto) Not Reportable Lymph % (Auto) Not Reportable Ray % (Auto) Not Reportable Eos % (Auto) Not Reportable Baso % (Auto) Not Reportable Lymph # (Auto) Not Reportable Ray # (Auto) Not Reportable Baso # (Auto) Not Reportable Total Counted 100 Seg Neutrophils % 54.0 Band Neutrophils % 29.0 H Lymphocytes % (Manual) 15.0 L Monocytes % (Manual) 1.0 L Eosinophils % (Manual) 1.0 L Neutrophils # (Manual) 46600 H Platelet Estimate RBC Morphology See below Anisocytosis 1+ H D-Dimer Sodium 137 Potassium 3.8 Chloride 105 Carbon Dioxide 23 BUN 5 L Creatinine 0.47 L Estimated GFR > 60 BUN/Creatinine Ratio 10.6 Glucose 90 Lactate Calcium 8.4 Total Bilirubin AST ALT Alkaline Phosphatase Total Creatine Kinase CK-MB (CK-2) CK-MB (CK-2) Rel Index Troponin I NT-Pro-B Natriuret Pep Total Protein Albumin Globulin Albumin/Globulin Ratio Lipase Procalcitonin Ur Bilirubin Confirm Urine RBC Urine WBC Urine Bacteria Ur Culture Indicated? SARS-CoV-2 (PCR) Influenza A (RT-PCR) Influenza B (RT-PCR) RSV (PCR) FORMERLY [facility], 1928[facility]1983 Social History household members: spouse and children Smoking Status: Never smoker Assessment & Plan Assessment & Plan narrative: 1. Sepsis secondary to community acquired lingular pneumonia -imaging consistent with left sided lingular basilar pneumonia -labs show significant leukocytosis and bandemia of 30%, with tachycardia -did get IV fluids and started on ceftriaxone and azithromycin -continue antibiotics, with ceftriaxone and azithromycin -continue with pain medications, and cough medications -patient's symptoms improving overall although WBC still high, continue abx -obtain sputum culture 2. COVID positive -not requiring any oxygen -for now no indication for remdesivir or steroids -supportive care CODE: Full Proxy: Delmi Naranjo spouse Time Spent With Patient Critical Care time: I spent a total of [] minutes of critical care time on this patient's care today; this time is exclusive of procedural time. Quality VTE Deep Vein Thrombosis/Pulmonary Embolism Present on Admission: No
[2022-07-23] MEDS: ENOXAPARIN 40 MG/0.4 ML SYRINGE SUBCUT (08:57)
--- NOTE | 2022-07-23 13:36 | CM.DANOTE ---
Discharge Planning/Care Management CM Discharge Assessment Start: 07/23/22 13:30 Freq: Status: Active Protocol: Document 07/23/22 13:30 ROSCOE (Rec: 07/23/22 13:36 ROSCOE [id number]) Discharge Planning Assessment Assigned Chart Picker BRANDON Goldstein DPOA/Assigned Designee Name Juan Naranjo, spouse Contact Information [phone] Advance Directives? No History Provided By Medical Record Prior Living Arrangements House Household Members spouse,children Type of transporation used prior to Drives own vehicle admit Independent with ADL's Yes Is patient alert and oriented? Yes Barriers to Discharge No Comment Patient arrives with CP, cough , SOB, admitted with pneumonia and COVID+ Patient is an RN at [employer], [employer] and active, lives w/spouse and children. Patient is currently Self Pay, Admitting notes are detailed and explain patient and spouse do not qualify for the [employer] exchange and do not qualify for [employer]. Patient will soon have COBRA through her employer and/or have insurance activated through her 's coverage, patient does not anticipate getting health insurance from the [facility]. Home w/family upon discharge Discharge Plan Home Transportation Arrangement Family Referrals Initiated None needed Additional Comment Patient has no insurance- Self Pay
[2022-07-23] MEDS: OXYCODONE IR 5 MG TABLET PO ×2 (18:30→22:27)
[2022-07-23] MEDS: ONDANSETRON 4 MG/2 ML INJ IV (20:53)
[2022-07-23] MEDS: guaiFENesin ER 600 MG TAB PO (21:20)
[2022-07-23] MEDS: cefTRIAXone 2,000 MG in SODIUM CHLORIDE 0.9% 100 ML 200 MG IV (21:21)
[2022-07-23] MEDS: AZITHROMYCIN 500 MG in DEXTROSE 5% IN WATER 250 ML 250 MG IV (22:28)
[2022-07-24] VITALS: BP 100/70; PULSE 87; TEMP 37; O2SAT 94
[2022-07-24 03:00] VITALS: O2SAT 94
[2022-07-24] MEDS: KETOROLAC 30 MG/ML VIAL 15 MG IV ×2 (03:57→10:02)
[2022-07-24] MEDS: CODEINE/GUAIFENESIN LIQUID 5ML UDC 10 ML PO (03:58)
[2022-07-24] MEDS: ACETAMINOPHEN 325 MG TABLET 650 MG PO ×2 (03:58→10:01)
[2022-07-24 04:00] VITALS: BP 130/82; PULSE 98; TEMP 36.6; O2SAT 97
[2022-07-24 06:11] LABS: Hematocrit 31.5 % (36-46); Hemoglobin 10.3 g/dL (12.0-16.0); Mean Corpuscular HGB Conc 32.7 % (30-36); Mean Corpuscular Hemoglobin 25.8 PG (26-34); Platelet Count 348 X10^3/uL (150-400); Red Blood Cell Count 3.99 X10^6/uL (4.0-5.2); Red Cell Distribution Width 15.3 % (11.6-14.8); White Blood Cell Count 17.8 X10^3/uL (4.5-11.0)
[2022-07-24] MEDS: ONDANSETRON 4 MG/2 ML INJ IV ×2 (06:15→13:26)
[2022-07-24 06:49] LABS: Add Manual Diff / Slide Review YES
[2022-07-24 06:53] LABS: BUN Creatinine Ratio 20.8 (6-22); Blood Urea Nitrogen 10 mg/dL (7-17); Calcium 8.1 mg/dL (8.4-10.2); Carbon Dioxide 22 mmol/L (22-32); Chloride 104 mmol/L (98-107); Estimated Glomerular Filt Rate > 60 mL/min (>60); Glucose 93 mg/dL (70-100); HEMOLYSIS < 15 (0-50); Potassium 3.7 mmol/L (3.4-5.1); Sodium 136 mmol/L (137-145)
[2022-07-24 07:16] LABS: Neutrophils Absolute Manual 12994 /uL (3000-5900); Total Cells Counted 100
[2022-07-24 07:17] LABS: RBC Morphology Normal Morphology
[2022-07-24 08:00] VITALS: BP 143/79; PULSE 100; RESP 20; TEMP 36.6; O2SAT 94
[2022-07-24] MEDS: OXYCODONE IR 5 MG TABLET PO (10:02)
[2022-07-24] MEDS: guaiFENesin ER 600 MG TAB PO (10:04)
--- NOTE | 2022-07-24 10:33 | P.DS_ITS ---
History of Present Illness History of Present Illness Date Patient Seen: 07/24/22 Time Patient Seen: 10:33 Chief complaint: chest pain, cough, shortness of lucio, fev, chills Narrative: Per admitting provider, Ms. Naranjo is a 37W with no significant cardiac or pulmonary medical history who presents with shortness of breath and cough. She was recently in [place] and returned a week and a half ago. She has noted since she has developed a worsening cough and shortness of breath. She notes developing left sided chest pain that hurts worth with breaths. She has no sick contacts. No smoking or vaping history. No aspiration. She had been taking tylenol and ibuprofen consistently for pain. She has noted fevers. Her cough is nonproductive. In the ED workup was done, vitals notable for being afebrile, heart rate in the 120s, sats 98% on room air. Labs notable for WBC 35.8, hgb 12.1, 25% bands. Lactate 1.2. COVID positive. d-dimer 818. Creatinine 0.56. Procal 1.04. Chest xray with left basilar consolidation. CTA chest with left lingular consolidation. She was ordered for antibiotics and admitted for further treatment. Discharge Providers Provider Date of admission: 07/22/22 21:55 Discharge Date: 07/24/22 Discharge provider: Ran Caruso DO Summary Hospital Course Discharge Diagnosis: 1. community acquired lingular pneumonia, sepsis ruled out 2. COVID positive Hospital Course: This is a 37-year-old female with no significant past medical history who was admitted for further treatment of presumed superimposed bacterial pneumonia in addition to being COVID positive. She had symptoms with initiation of IV antibiotic, and improved shortness of breath. She will complete therapy with levofloxacin for bacterial pneumonia, and no additional medications are recommended at the time of discharge other than symptom control. She had a markedly elevated white blood cell count greater than 30K on admission, with improvement symptoms her white blood cell count improved to 17K and she was discharged home. Patient should try to establish with primary care provider, which she is working on at this time. Time Spent with Patient Time spent: Less than 30 minutes Exam Vital Signs (past 8 hours): - 07/24/22 03:00 07/24/22 04:00 07/24/22 08:00 Temperature 97.8 F Pulse Rate 98 H Respiratory Rate Blood Pressure 130/82 Pulse Oximetry 94 97 94 Oxygen Delivery Method Room Air Room Air Oxygen Flow Rate 0 07/24/22 08:00 Temperature 97.8 F Pulse Rate 100 H Respiratory Rate 20 Blood Pressure 143/79 H Pulse Oximetry 94 Oxygen Delivery Method Oxygen Flow Rate 0 Oxygen Delivery Method Room Air Oxygen Flow Rate 0 Narrative Exam Narrative: GEN: mildly ill appearing, awake and alert, no acute distress HEENT: moist mucous membranes, PERRL NECK: trachea midline, no jvd PULM: CTA B/l. no wheezing, rhonchi, or rales. CV: tachycardic no murmurs ABD: soft, nontender EXT: warm and well perfused, no edema NEURO: awake, alert, oriented, no focal deficits noted Objective Labs 07/24/22 05:32 07/24/22 05:32 Labs: Laboratory Results - last 24 hr 07/24/22 07/24/22 05:32 05:32 WBC 17.8 H D RBC 3.99 L Hgb 10.3 L Hct 31.5 L MCV 79.0 L MCH 25.8 L MCHC 32.7 RDW 15.3 H Plt Count 348 Neut % (Auto) Not Reportable Lymph % (Auto) Not Reportable [place] % (Auto) Not Reportable Eos % (Auto) Not Reportable Baso % (Auto) Not Reportable Lymph # (Auto) Not Reportable [place] # (Auto) Not Reportable Baso # (Auto) Not Reportable Total Counted 100 Seg Neutrophils % 66.0 Band Neutrophils % 7.0 Lymphocytes % (Manual) 15.0 L Atypical Lymphs % 8.0 H Eosinophils % (Manual) 3.0 Basophils % (Manual) 1.0 Neutrophils # (Manual) 48837 H RBC Morphology Normal morphology Sodium 136 L Potassium 3.7 Chloride 104 Carbon Dioxide 22 BUN 10 Creatinine 0.48 L Estimated GFR > 60 BUN/Creatinine Ratio 20.8 Glucose 93 Calcium 8.1 L PFSH Social History household members: spouse and children Smoking Status: Never smoker Discharge Plan Discharge Plan Patient Disposition: Home Provider Discharge Comment: You were admitted to the hospital with difficulty breathing, due to a pneumonia likely after COVID infection. Continue antibiotic therapy at home. No other changes are needed at this time. Discharge orders & Medications Prescriptions: New oxycodone 5 mg Tablet 5 mg PO Q4HR PRN (Reason: Pain, Moderate (4-6)) 7 Days Qty: 10 0RF guaifenesin [Mucus Relief ER] 600 mg Tablet Extended Release 12hr 600 mg PO BID 14 Days Qty: 28 0RF levofloxacin 750 mg tablet 750 mg PO DAILY 5 Days Qty: 5 0RF Diet/Activity/Treatments Diet: Diet as Tolerated Activity: As tolerated Visit Report/Discharge Packet Instructions: DI for Pneumonia -- Adult, Levofloxacin Stand Alone Forms: Patient Portal/API, Stroke Signs & Symptoms Quality VTE Deep Vein Thrombosis/Pulmonary Embolism Present on Admission: No
--- NOTE | 2022-07-25 08:49 | CM.DPNOTE ---
DC Note Late Entry MD cleared patient for return home 3.1.23, home w/spouse and close outpatient follow up recommended. Patient at her functional baseline. Patient and spouse agreeable to plan. No needs identified from this CM team JW
== END 2022-07-24 13:40 | disposition home or self-care (01) | DRG 193 ==
LOC: ED 20:00 → AC 21:56
PROVIDERS: Student in an Organized Health Care Education/Training Program; Admitting Provider Internal Medicine; Emergency Provider Emergency Medicine; Referring Provider Emergency Medicine; Visit Provider Internal Medicine
DX: J15.9 Unspecified bacterial pneumonia (principal); U07.1 COVID-19
CPT/HCPCS: 0241U; 36415; 71045; 71275; 80048; 80053; 81003; 81015; 81025; 82550; 83605; 83690; 83880; 84145; 84484; 85007; 85025; 85379; 87040; 87070; 87205; 93005; 96365; 96375; 99284; 99285; J0696; J1650; J1885; J2270; J2405; Q9967

== ENCOUNTER 2024-01-14 23:07 | Emergency (ER) | payer OTHER, SELFPAY ==
[2022-07-22 23:20] VITALS: BMI 36.6
[2024-01-14 23:10] VITALS: BP 146/83; PULSE 90; RESP 16; TEMP 37; O2SAT 98; BMI 37.5
--- NOTE | 2024-01-14 23:32 | ED_ITS ---
HPI - General Adult General Chief complaint: Urogenital-Female Stated complaint: possible kidney infection Time Seen by Provider: 01/14/24 23:16 Source: patient Mode of arrival: Ambulatory History of Present Illness HPI narrative: 38-year-old female vaccine week ago was started Macrobid for a urinary tract infection. She stated that she was having dysuria and frequency and a small amount of right-sided flank pain the time of the symptoms she states initially her symptoms improved but now she wants again is having chills and subjective fevers, is now having flank pain on both sides of her back. No vomiting. She was also having dysuria and frequency. Related Data Previous Rx's Medication Instructions Recorded cephalexin 500 mg capsule 500 mg PO TID 10 days #30 caps 01/14/24 Allergies Allergy/AdvReac Type Severity Reaction Status Date / Time ciprofloxacin [From Cipro] Allergy Verified 07/22/22 19:36 Sulfa (Sulfonamide Allergy Verified 07/22/22 19:36 Antibiotics) Review of Systems Review of Systems Narrative: See HPI Patient History Social History household members: spouse and children Smoking Status: Never smoker Smoking Status: Never smoker alcohol intake frequency: holidays/special occasions only Substance Use Type: does not use Exam Initial Vital Signs Initial Vital Signs: Vital Signs Temperature 98.6 F 01/14/24 23:10 Pulse Rate 90 01/14/24 23:10 Respiratory Rate 16 01/14/24 23:10 Blood Pressure 146/83 H 01/14/24 23:10 Pulse Oximetry 98 01/14/24 23:10 Oxygen Delivery Method Room Air 01/14/24 23:10 Const General: cooperative and comfortable HENMT Head: normal to inspection and normocephalic GI Inspection: non-distended Back/Spine/Pelvis Back: CVA tenderness Extrem General: capillary refill normal Course Orders Ordered: Discontinued Medications Cephalexin HCl (Cephalexin 250 Mg Capsule) 500 mg PO NOW ONE Stop: 01/14/24 23:33 Last Admin: 01/14/24 23:39 Dose: 500 mg Documented By: Vital Signs Vital signs: Vital Signs - 8 hr 01/14/24 23:10 01/14/24 23:42 Temperature 98.6 F 98.2 F Pulse Rate 90 85 Respiratory Rate 16 18 Blood Pressure 146/83 H 145/85 H Pulse Oximetry 98 100 Oxygen Delivery Method Room Air Room Air Medical Decision Making MDM Narrative Medical decision making narrative: Patient has a known urinary tract infection. Has been on Macrobid for the past week with initially some improvement of symptoms but now the symptoms have returned and she does have flank chills. No vomiting. I feel that a urinalysis would be unhelpful in the situation as she clinically has a urinary tract infection and potentially as pyelonephritis given her symptoms began she has been on antibiotics for the past week. Plan will be to switch her to Keflex as this would be a better choice for pyelonephritis. First dose given here in the emergency department and she tolerated without vomiting. No indication for admission to the hospital based on her physical exam today in the fact that she was tolerating oral antibiotics. She was instructed to stop Macrobid. She was given return precautions. She expressed understanding and agreement. Discharge Plan Departure Patient Disposition: Home Clinical Impression: Pyelonephritis Instructions: DI for Kidney Infection Activity Restrictions/Additional Instructions: We are going to switch your antibiotics from Macrobid to Keflex. Stop taking th e Macrobid even though you have not completed the full course of this. Start taking the Keflex as directed. A prescription was sent to [facility] per your request. Contact your primary care doctor for a follow-up. Return to the emergency department for new or worsening symptoms. Prescriptions: New cephalexin 500 mg capsule 500 mg PO TID 10 Days Qty: 30 0RF Stand Alone Forms: Patient Portal/API
[2024-01-14] MEDS: cephALEXin 250 MG CAPSULE 500 MG PO (23:39)
[2024-01-14 23:42] VITALS: BP 145/85; PULSE 85; RESP 18; TEMP 36.8; O2SAT 100
== END 2024-01-14 23:44 | disposition home or self-care (01) ==
PROVIDERS: Emergency Provider Emergency Medicine
DX: N12 Tubulo-interstitial nephritis, not specified as acute or chronic (principal)
CPT/HCPCS: 99283